=== PATIENT | female | born 1955 | race Caucasian/White ===

== ENCOUNTER 2016-06-05 09:06 | Emergency (ER) | payer BC ==
[2016-06-05 09:52] VITALS: BP 112/64
--- NOTE | 2016-06-05 10:01 | UC ---
Complaint Female HPI - HPI Summary HPI Summary: Pt thinks she has a UTI. C/o hematuria & lower abdominal pain since yesterday. No flank pain. No changes to BM. Mild burning with urinating. [ End ] - History Of Current Complaint Chief Complaint: UCGU Stated Complaint: URINARY Time Seen by Provider: 06/05/16 09:56 Hx Obtained From: Patient Hx Last Menstrual Period: 04/12/11 ?: No Onset/Duration: Gradual Onset Timing: Constant - Risk Factors Ectopic Risk Factor: Negative - Allergies/Home Medications Allergies/Adverse Reactions: Allergies Allergy/AdvReac Type Severity Reaction Status Date / Time No Known Allergies Allergy Verified 06/05/16 09:44 Home Medications: Home Medications Pantoprazole TAB (NF) [Protonix TAB (NF)] 40 mg PO DAILY 06/05/16 [History Confirmed 06/05/16] Ranitidine TAB (NF) [Zantac TAB (NF)] 150 mg PO BID 06/05/16 [History Confirmed 06/05/16] Sertraline* [Zoloft*] 100 mg PO BEDTIME 06/05/16 [History Confirmed 06/05/16] PMH/Surg Hx/FS Hx/Imm Hx Previously Healthy: Yes Endocrine History Of: Denies: Diabetes GI/ History Of: Reports: Ulcer - currently Psychological History Of: Reports: Depression - Surgical History Surgical History: Yes Surgery Procedure, Year, and Place: TUBAL. CHOLECYSTECTOMY - Family History Known Family History: Positive: None - Social History Occupation: Employed Full-time Lives: With Family Alcohol Use: Rare Substance Use Type: None Smoking Status (MU): Never Smoked Tobacco Review of Systems Constitutional: Negative Skin: Negative Eyes: Negative ENT: Negative Respiratory: Negative Cardiovascular: Negative Gastrointestinal: Negative Genitourinary: Dysuria, Hematuria, Frequency Motor: Negative Neurovascular: Negative Musculoskeletal: Negative Neurological: Negative Psychological: Negative All Other Systems Reviewed And Are Negative: Yes Physical Exam Triage Information Reviewed: Yes Appearance: Well-Appearing, No Pain Distress, Well-Nourished Vital Signs: Initial Vital Signs Temp 98.4 F 06/05/16 09:46 Pulse 69 06/05/16 09:46 Resp 16 06/05/16 09:46 BP 112/64 06/05/16 09:46 Pulse Ox 97 06/05/16 09:46 Eye Exam: Normal ENT Exam: Normal Dental Exam: Normal Neck exam: Normal Neck: Positive: 1 Respiratory Exam: Normal Cardiovascular Exam: Normal Abdominal Exam: Normal Musculoskeletal Exam: Normal Neurological Exam: Normal Psychological Exam: Normal Skin Exam: Normal Complaint Female Dx - Differential Dx/Diagnosis Differential Diagnosis/HQI/PQRI: Urinary Tract Infection Provider Diagnoses: UTI Discharge - Discharge Plan Condition: Good Disposition: HOME Prescriptions: Sulfamethox/Trimethoprim DS* [Bactrim DS 800/160 TAB*] 1 tab PO BID #10 tab Patient Education Materials: Urinary Tract Infection in Women (ED) Referrals: Sendy Hinkle NP [Nurse Practitioner] - 3 Days (If needed)
== END 2016-06-05 10:14 | disposition home or self-care (01) ==
LOC: UCCORT 09:06
DX: N39.0 Urinary tract infection, site not specified (principal); R31.9 Hematuria, unspecified; F32.9 Major depressive disorder, single episode, unspecified; Z90.49 Acquired absence of other specified parts of digestive tract
CPT/HCPCS: 81003; 87077; 87086; 87186; 99212; G0463

== ENCOUNTER 2018-07-29 11:03 | Emergency (ER) | payer BC ==
--- NOTE | 2018-07-29 13:32 | UC ---
Shoulder Pain HPI - HPI Summary HPI Summary: Pt fell on left shoulder yesterday and complains of pain. No other injury, did not hit her head, no neck pain. - History of Current Complaint Chief Complaint: UCUpperExtremity Stated Complaint: LEFT SHOULDER INJURY 07/28 Time Seen by Provider: 07/29/18 13:13 Hx Obtained From: Patient Hx Last Menstrual Period: 04/12/11 ?: No Onset/Duration: Sudden Onset Severity Initially: Mild Severity Currently: Moderate Pain Intensity: 8 Character: Dull, Aching Aggravating Factor(s): Movement, Lifting Alleviating Factor(s): Rest Associated Signs And Symptoms: Positive: Negative - Allergies/Home Medications Allergies/Adverse Reactions: Allergies Allergy/AdvReac Type Severity Reaction Status Date / Time No Known Allergies Allergy Verified 07/29/18 13:16 PMH/Surg Hx/FS Hx/Imm Hx Previously Healthy: Yes Psychological History: Anxiety - Surgical History Surgical History: Yes Surgery Procedure, Year, and Place: TUBAL. CHOLECYSTECTOMY - Family History Known Family History: Positive: None, Hypertension - Social History Alcohol Use: Rare Substance Use Type: None Smoking Status (MU): Never Smoked Tobacco Review of Systems All Other Systems Reviewed And Are Negative: Yes Motor: Positive: Decreased ROM - Left shoulder pain with ROM Musculoskeletal: Positive: Negative Neurological: Positive: Negative Psychological: Positive: Negative Is Patient Immunocompromised?: No Physical Exam Triage Information Reviewed: Yes Appearance: Well-Appearing, No Pain Distress, Well-Nourished Vital Signs: Initial Vital Signs Temp 98.3 F 07/29/18 13:11 Pulse 79 07/29/18 13:11 Resp 18 07/29/18 13:11 BP 158/86 07/29/18 13:11 Pulse Ox 96 07/29/18 13:11 Vital Signs Reviewed: Yes Neck: Positive: Supple, Nontender, Other: - c spine non-tender Respiratory: Positive: Lungs clear, Normal breath sounds, No respiratory distress, No accessory muscle use Cardiovascular: Positive: RRR, No Murmur, Pulses Normal, Brisk Capillary Refill Musculoskeletal: Positive: Strength Intact, No Edema, ROM Limited @ - limited with lifting arm due to pain in anterior shoulder when lifting the arm. No deformity, bruising, erythema or swelling. Good periph pulses, neurosensation, cap refill, good wrist and elbow stability. Neurological: Positive: Alert, Muscle Tone Normal Psychological Exam: Normal Skin Exam: Normal Shoulder Course/Dx - Course Course Of Treatment: Left Shoulder x-ray:FINDINGS: There is a well-circumscribed cluster of calcification overlying the superior lateral margin of the left humeral head in the region of the subdeltoid bursa. Otherwise the adequately corticated bones are in normal alignment. Joint spaces appear maintained. No fracture, dislocation or focal bony abnormality is seen. IMPRESSION: WELL-CIRCUMSCRIBED CALCIFICATIONS IN THE VICINITY OF THE SUBDELTOID BURSA COULD BE DUE TO CALCIFICATION WITHIN THE BURSA. If the patient's symptoms persist, follow-up imaging is recommended. - Differential Dx/Diagnosis Provider Diagnosis: Calcific tendonitis of left shoulder region Discharge - Sign-Out/Discharge Documenting (check all that apply): Patient Departure All imaging exams completed and their final reports reviewed: Yes - Discharge Plan Condition: Fair Disposition: HOME Patient Education Materials: Calcific Tendinitis (ED) Referrals: Amelie Patterson MD [Primary Care Provider] - Additional Instructions: Warm, moist heat to the sore area, avoid movements that cause pain. Avoid lifting, follow up with your doctor if no improvement in 3-4 days. - Billing Disposition and Condition Condition: FAIR Disposition: Home - Attestation Statements Provider Attestation: Per institutional requirements, I have reviewed the chart, however, I was not consulted specifically or made aware of this patient by the midlevel provider. I did not personally evaluate, interact with , or disposition this patient.
[2018-07-29 14:49] VITALS: BP 131/72
== END 2018-07-29 14:40 | disposition home or self-care (01) ==
LOC: UCCORT 11:03
DX: M75.32 Calcific tendinitis of left shoulder (principal); F41.9 Anxiety disorder, unspecified
CPT/HCPCS: 99211; G0463